=== PATIENT | male | born 1965 | race African-American/Black ===

== ENCOUNTER 2022-02-05 05:41 | Emergency (ER) | payer OTHER ==
[2022-02-05 05:50] VITALS: BMI 20.9
[2022-02-05] MEDS ORDERED: HALOPERIDOL LACTATE 5 MG/ML ONE ×2 (06:18→06:34)
[2022-02-05] MEDS ORDERED: HALOPERIDOL LACTATE 5 MG/ML IM ONE ×2 (06:25→06:33)
[2022-02-05] MEDS ORDERED: MIDAZOLAM HCL 2 MG/2 ML SINGLE DOSE VIAL ONE (06:33)
[2022-02-05] MEDS ORDERED: MIDAZOLAM HCL 2 MG/2 ML SINGLE DOSE VIAL IM ONE (06:33)
[2022-02-05 08:30] LABS: BASO % 0.4 % (0-2.0); EOS % 0.2 % (0-4.5); HEMATOCRIT 42.1 % (35.4-49); LYMPH % 31.1 % (8-40); MCH 31.1 pg (25.7-33.7); MCHC 33.2 g/dl (32.0-35.9); MEAN CELL VOLUME 93.8 fl (80-96); MEAN PLT VOLUME 9.2 fl (7.5-11.1); MONO % 10.6 % (3.8-10.2); NEUT % 57.7 % (42.8-82.8); PLATELET COUNT 213 10^3/uL (134-434); RBC 4.49 M/mm3 (4.00-5.60); RDW 14.9 % (11.9-15.9); WHITE BLOOD COUNT 10.2 K/mm3 (4.0-10.0)
[2022-02-05 08:51] LABS: CALCIUM 9.8 mg/dL (8.5-10.1)
[2022-02-05 08:52] LABS: ALBUMIN 4.6 g/dl (3.4-5.0); BLOOD UREA NITROGEN 6.6 mg/dL (7-18)
[2022-02-05 08:55] LABS: CREATININE 0.8 mg/dL (0.55-1.3)
[2022-02-05 08:57] LABS: BILIRUBIN,TOTAL 0.6 mg/dL (0.2-1); TOT PROT 8.2 g/dl (6.4-8.2)
[2022-02-05 11:29] VITALS: BP 165/107; PULSE 124; TEMP 98.3
== END 2022-02-05 11:52 | disposition left against medical advice (07) ==
LOC: JER 05:41
PROC: 3E023GC Introduction of Other Therapeutic Substance into Muscle, Percutaneous Approach (ICD-10-PCS; principal; 2022-02-05)
DX: R41.82 Altered mental status, unspecified (principal); F12.10 Cannabis abuse, uncomplicated
CPT/HCPCS: 36415; 70450-TC; 71045-TC-FY; 80053; 80307; 82962; 84484; 85025; 99285-25; C9803-CS; U0003; U0005